=== PATIENT | female | born 1955 | race American Indian/Alaskan Native ===

== ENCOUNTER 2021-03-23 17:28 | Emergency (ER) | payer MEDICAID ==
--- NOTE | 2021-03-23 18:30 | EDM.PDOC ---
<AltagraciaYao Jurgen - Last Filed: 03/23/21 18:24> ED HPI GENERAL MEDICAL PROBLEM - General Chief Complaint: Lower Extremity Injury/Pain Stated Complaint: FALL, PAIN ON BOTH LEGS Time Seen by Provider: 03/23/21 18:17 - History of Present Illness INITIAL COMMENTS - FREE TEXT/NARRATIVE: Patient presents to the emergency department complaining of left knee pain. She had a prior knee replacement on this side. The patient was interacting with her dog and slipped and kind of did the splits and developed significant pain into the left knee area especially when she extends it. She did not fall or hit her head. There is no blood thinners. No numbness or weakness to the affected extremity knee bilaterally Pain Score (Numeric/FACES): 10 - Related Data Allergies Allergy/AdvReac Type Severity Reaction Status Date / Time No Known Allergies Allergy Verified 03/23/21 18:11 Home Meds: Home Meds Metoprolol Succinate mg PO DAILY 03/23/21 [History] hydroCHLOROthiazide [Hydrochlorothiazide] mg PO DAILY 03/23/21 [History] lisinopriL [Lisinopril] 40 mg PO DAILY 03/23/21 [History] Past Medical History Cardiovascular History: Reports: Hypertension, [place] - Infectious Disease History Infectious Disease History: Reports: Chicken Pox, Measles, Mumps, Novel Coronavirus - Past Surgical History Musculoskeletal Surgical History: Reports: Knee Replacement Social & Family History - Family History Family Medical History: No Pertinent Family History - Tobacco Use Tobacco Use Status *Q: Never Tobacco User - Caffeine Use Caffeine Use: Reports: None - Recreational Drug Use Recreational Drug Use: No Review of Systems - Review of Systems Review Of Systems: See Below Musculoskeletal: Reports: Other (Left knee pain.) Skin: Denies: Rash Neurological: Denies: Numbness, Weakness ED EXAM, GENERAL - Physical Exam Exam: See Below Free Text/Narrative:: CONSTITUTIONAL: well appearing in no acute distress SKIN: dry, and intact without rash HENT: Normocephalic, atraumatic, NECK: normal range of motion PULMONARY: normal chest rise and fall, no respiratory distress or stridor NEUROLOGIC: normal speech, moves all extremities, grossly non-focal MUSCULOSKELETAL: Patient points to the left knee where there is pain. There is discomfort when she has passive or active extension of the knee. No patellar tendon defect. Mild diffuse tenderness to the knee and proximal tib-fib area. There is no defect of the proximal calf muscle or tenderness to the tendon insertions in this area. Cap refill less than 2 seconds, strong dorsalis pedis pulse, sensorimotor function intact in the left lower extremity PSYCHIATRIC: normal mood and affect Course - Vital Signs Text/Narrative:: Differential diagnosis: Fracture, meniscal injury, ligamentous injury, other SBAR [place] 7pm Departure - Departure Time of Disposition: 19:20 Disposition: Home, Self-Care 01 Condition: Good Clinical Impression: Knee pain, left, Injury of ligament of left knee - Discharge Information Instructions: Acute Knee Pain, Adult, How to Use a Knee Immobilizer Referrals: PCP,Not In Area [Primary Care Provider] - Forms: ED Department Discharge Additional Instructions: Your seen and evaluated in the ER today secondary to injury to your left knee. Your x-rays are negative for any fractures. You were placed in a knee immobilizer to assist with immobilization of your ligaments which should help in the healing process. Please make an appointment to follow-up with your doctor/orthopedics within the week. [facility] [address], [address] [place] [address] Return for numbness, weakness, cold extremity. Follow-up with primary care doctor and also follow-up with orthopedic doctor for continued testing and treatment if pain persists. The following information is given to patients seen in the emergency department who are being discharged to home. This information is to outline your options for follow-up care. We provide all patients seen in our emergency department with a follow-up referral. The need for follow-up, as well as the timing and circumstances, are variable depending upon the specifics of your emergency department visit. If you don't have a primary care physician on staff, we will provide you with a referral. We always advise you to contact your personal physician following an emergency department visit to inform them of the circumstance of the visit and for follow-up with them and/or the need for any referrals to a consulting specialist. The emergency department will also refer you to a specialist when appropriate. This referral assures that you have the opportunity for follow-up care with a specialist. All of these measure are taken in an effort to provide you with optimal care, which includes your follow-up. Under all circumstances we always encourage you to contact your private physician who remains a resource for coordinating your care. When calling for follow-up care, please make the office aware that this follow-up is from your recent emergency room visit. If for any reason you are refused follow-up, please contact the [facility] Emergency Department at and asked to speak to the emergency department charge nurse. [facility] [address] [place] [id number] [facility] [address] [place] [id number] <Elias Bryson - Last Filed: 03/23/21 20:22> ED HPI GENERAL MEDICAL PROBLEM - History of Present Illness INITIAL COMMENTS - FREE TEXT/NARRATIVE: 8:19 PM: Signout received at 7 PM. Patient presents with pain to her left knee after injury. Patient's injury appears to be consistent with ligamentous strain. Patient's x-rays negative for acute fracture as interpreted by myself and reviewed with radiology. Patient will be placed in a knee immobilizer. Patient does have a cane and prefers that over crutches. Patient will be given a shot of Toradol to assist her with her pain and discomfort. Patient reports that she has Tylenol at home and does not want prescriptions for any other pain meds. Patient is able to weight-bear in the ED but having pain. Patient will need to follow-up with her doctor/orthopedic surgery for reevaluation. Reassessment at the time of disposition demonstrates that the patient is in no acute distress. The patient has remained stable throughout the entire ED visit and is without objective evidence for acute process requiring urgent intervention or hospitalization. The patient is stable for discharge, counseling is provided as documented above, discussed symptomatic treatment and specific conditions for return. I have spoken with the patient/caregiver and discussed todays findings, in addition to providing specific details for the plan of care. Questions are answered and there is agreement with the plan. DME: Left knee immobilizer will be placed secondary to ligamentous injury to her left knee. Knee immobilizer will assist with his immobilizing the ligaments for healing of ligamentous injuries. This should stay on for 2 weeks. Course - Vital Signs Last Recorded V/S: Last Vital Signs Temp 97.8 F 03/23/21 18:37 Pulse 68 03/23/21 18:37 Resp 18 03/23/21 18:37 BP 148/67 H 03/23/21 18:37 Pulse Ox 96 03/23/21 18:37 - Orders/Labs/Meds Orders: Active Orders 24 hr Category Date Time Status DME for Discharge [COMM] Stat Oth 03/23/21 20:17 Ordered Meds: Medications Discontinued Medications Generic Name Dose Route Start Last Admin Trade Name Freq PRN Reason Stop Dose Admin Acetaminophen 650 mg 03/23/21 18:38 03/23/21 18:42 Acetaminophen 325 Mg Tab PO 03/23/21 18:39 650 mg NOW ONE Administration Sepsis Event Note (ED) - Focused Exam Vital Signs: Vital Signs Temp Pulse Resp BP Pulse Ox 03/23/21 18:37 97.8 F 68 18 148/67 H 96 03/23/21 18:13 98.0 F 70 17 141/66 H 97 - My Orders Last 24 Hours: My Active Orders 03/23/21 20:17 DME for Discharge [COMM] Stat - Assessment/Plan Last 24 Hours: My Active Orders 03/23/21 20:17 DME for Discharge [COMM] Stat
[2021-03-23] MEDS ORDERED: Acetaminophen 325 MG Tab PO ONE (18:38)
--- NOTE | 2021-03-23 20:11 | CR ---
INDICATION: Status post fall, twisted left leg. TECHNIQUE: Knee radiographs 3 views COMPARISON: None FINDINGS: Postsurgical changes from left knee arthroplasty. No acute periprosthetic fracture or left knee joint effusion. Distal quadriceps tendon and patellar tendon unremarkable. No prepatellar soft tissue swelling. IMPRESSION: 1. Left knee, no acute fracture or joint effusion. Dictated by Omero Mcrae MD @ 03/23/2021 8:09:[address] Omero Mcrae @ Mar 23 2021 8:09PM
--- NOTE | 2021-03-23 20:13 | CR ---
INDICATION: Status post fall, twisted leg. TECHNIQUE: Tibia-fibula radiograph 2 views COMPARISON: None FINDINGS: Bones: Alignment is normal. No acute fractures or aggressive osseous lesions seen. Joint spaces: Left knee arthroplasty intact. Left ankle alignment intact. Soft tissues: Soft tissues unremarkable. No radiopaque soft tissue foreign body. IMPRESSION: 1. No acute fracture involving the left tibia or fibula. Dictated by Omero Mcrae MD @ 03/23/2021 8:12:[address] Omero Mcrae @ Mar 23 2021 8:12PM
[2021-03-23] MEDS ORDERED: Ketorolac 15 MG/ML SDV IM STA (20:22)
== END 2021-03-23 20:40 | disposition home or self-care (01) ==
LOC: MW.ED 17:28
DX: S89.92XA Unspecified injury of left lower leg, initial encounter (principal); I10 Essential (primary) hypertension; I25.2 Old myocardial infarction; Z79.899 Other long term (current) drug therapy; Z96.652 Presence of left artificial knee joint; W01.0XXA Fall on same level from slipping, tripping and stumbling without subsequent striking against object, initial encounter
CPT/HCPCS: 73562; 73590; 96372; 99283; A9270; J1885